=== PATIENT | male | born 1965 | race Caucasian/White ===

== ENCOUNTER 2017-05-28 05:09 | Day surgery (SDC) | payer MEDICAID ==
[2017-05-27 11:13] LABS: HEMATOCRIT 38.9 % (42.0-54.0); HEMOGLOBIN 11.7 g/dL (13.5-17.5); MCH 24.5 pg (26.0-34.0); MCHC 30.1 g/dL (31.0-37.0); MCV 81.4 fL (80.0-100.0); MEAN PLATELET VOLUME 9.6 fL (7.4-10.4); RBC 4.78 10x6/uL (4.20-6.10); WBC 6.8 10x3/uL (4.8-10.8)
[2017-05-27 11:25] LABS: CALC OSMOLALITY 277 mosm/kg (275-300); CARBON DIOXIDE 23.6 mmol/L (21.0-32.0); CHLORIDE - SERUM 106 mmol/L (98-107); CREATININE - SERUM 1.1 mg/dL (0.6-1.3); GLUCOSE 95 mg/dL (74-106); POTASSIUM - SERUM 5.2 mmol/L (3.5-5.1); SODIUM 138 mmol/L (136-145); UREA NITROGEN 18 mg/dL (7-18); eGFR NON AFRICAN AMERICAN 75 mL/min (90-120)
[~2017-05-28] VITALS: Ht 172.7 cm; Wt 71.7 kg
[~2017-05-28 05:09] MED LIST: ACETAMINOPHEN325 MG PO; ADVIL PM CAPLET1 TAB PO; AMBIEN10 MG PO; CARAFATE1 G/10 ML PO; COUMADIN6 MG PO; DEPRESSION PILL; EFFEXOR75 MG PO; ELAVIL25 MG PO; FERROUS SULFAT325 MG PO; HYDROXYZINE PA100 MG PO; MELATONIN 3 MG1 TAB PO; NEURONTIN 300300 MG PO; NEURONTIN600 MG PO; OXYCODONE HCL5 MG PO; PROTONIX20 MG PO; PROTONIX40 MG PO; PROZAC20 MG PO; PROZAC40 MG PO; SEROQUEL50 MG PO; TORADOL10 MG PO; TYLENOL PM1 TAB PO
[2017-05-28] MEDS ORDERED: ASPIRIN325 MG PO (09:24)
[2017-05-28] MEDS ORDERED: ACETAMINOPHEN325 MG PO (09:24)
[2017-05-28] MEDS ORDERED: FERROUS SULFAT325 MG PO (09:26)
[2017-05-28 09:33] VITALS: BP 112/73; Ht 172.7 cm; Wt 71.7 kg
--- NOTE | 2017-05-28 13:32 | NUR ---
SHAVED LOWER ABDOMEN WERE SHAVING WAS N0T DONE, ANJANA.
[2017-05-28] MEDS ORDERED: NORCO 7.5/325 T1 TA1 PO (14:27)
--- NOTE | 2017-05-29 07:11 | OP ---
PATIENT NAME: DORA CENTENO MEDICAL RECORD: [id number] :65 LOCATION:D.[facility] ADMISSION DATE: SURGEON: JACKIE GUDINO MD DATE OF OPERATION: 05/28/2017 SURGEON: Dr. Jackie Gudino. PREOPERATIVE DIAGNOSES: 1. Omental mass. 2. Left lower quadrant pain. 3. History of perforated peptic ulcer with duodenal stenosis. PROCEDURE PERFORMED: 1. Laparoscopic omentectomy. 2. Laparoscopic lysis of adhesions. ANESTHESIA: General. COMPLICATIONS: None. SPECIMENS: Omentum. Case was clean. ESTIMATED BLOOD LOSS: 50 cc. OPERATIVE COURSE: After consent was obtained, the patient was taken to the operating room and placed in the supine position on the operating table. Next, general anesthesia was given via endotracheal intubation after a timeout was taken to confirm the correct patient and procedure. After the abdomen was prepped and draped in typical sterile fashion, a local anesthetic was injected in the right upper quadrant. Using a 5-mm bladeless optical trocar, the abdomen was entered under direct laparoscopic vision. Adequate pneumoperitoneum was achieved. The abdominal cavity was inspected. No evidence of bowel injury. No evidence of bleeding. At this time, 2 additional trocars were placed; one 12-mm trocar in the right lateral quadrant, 5-mm trocar in the left lower quadrant. Both were placed under direct laparoscopic vision after the administration of local anesthetic. A large omental mass was noted, which was densely adherent to the anterior abdominal wall. There were several loops of bowel adherent to the anterior abdominal wall. Meticulous lysis of adhesions was performed using Metzenbaum scissor dissection, as well as Harmonic scalpel dissection. Once all the small bowel loops were dissected off the anterior abdominal wall, the abdominal cavity was washed out. No evidence of bowel injury was identified. At this time, the omentum was dissected off the anterior abdominal wall using the Harmonic scalpel. Once complete, the omentum, it was transected at the base of the transverse colon. A 15 mm trocars placed in the 12-mm trocar site. The omentum was placed into a large EndoCatch bag and the incision was slightly enlarged. The bag was removed and the omentum was sent for permanent pathology. The 12-mm trocar was replaced. The abdominal cavity was reinspected. The entire abdominal cavity was copiously irrigated and suctioned. Careful attention was paid to hemostasis. As the abdominal cavity was inspected, there was no evidence of bowel injury. No evidence of bleeding. The small bowel was meticulously examined along the areas of dissection. There was no bowel injury was noted. No serosal defects noted. At this time, all remaining instruments were removed. The abdomen was desufflated. Trocars were removed. The 15-mm OPERATIVE REPORT [id number] DORA CENTENO trocar incision was closed in 2 layers. The peritoneum was closed with 0 Vicryl suture. The external and internal fascia layers were closed with an 0 Vicryl suture. Skin was closed with 4-0 Monocryl, Mastisol and Steri-Strips. At the end of the case, all needle and instrument counts were correct. No complications occurred. The patient was extubated and transferred to the PACU in stable condition. TRANSINT:[id number] Voice Confirmation ID: [id number] DOCUMENT ID: [id number] JACKIE GUDINO MD at 0711 CC: [id number] DICTATION DATE: 05/28/17 1425 CONSTRUCTION PIT WORKER: 05/28/172056 [facility] 05/28/17 [facility] [address] [place] [address]
== END 2017-05-28 18:00 | disposition home or self-care (01) ==
LOC: D.OPS 05:09 → D.PAN 10:30 → D.OPS 18:00
PROVIDERS: Anesthesiology
DX: R19.09 Other intra-abdominal and pelvic swelling, mass and lump (principal); R10.32 Left lower quadrant pain; K27.9 Peptic ulcer, site unspecified, unspecified as acute or chronic, without hemorrhage or perforation; I81 Portal vein thrombosis; Z01.812 Encounter for preprocedural laboratory examination

== ENCOUNTER → 2018-08-11 14:16 | Outpatient (CLI) | payer MEDICAID ==
[2017-05-28 09:33] VITALS: BMI 24.0
[~2018-08-11 14:16] MED LIST changes: +ASPIRIN325 MG PO; +NORCO 7.5/325 T1 TA1 PO
[2018-08-12 10:20] LABS: HEPATITIS C ANTIBODY <0.1 S/CO RAT (0.0-0.9)
== END | disposition home or self-care (01) ==
LOC: D.LAB 14:16
PROVIDERS: Internal Medicine Gastroenterology
DX: R74.8 Abnormal levels of other serum enzymes (principal); R10.13 Epigastric pain; R11.0 Nausea; D64.9 Anemia, unspecified; R63.4 Abnormal weight loss

== ENCOUNTER → 2018-11-16 09:01 | Outpatient (CLI) | payer MEDICAID ==
[2017-05-28 09:33] VITALS: BMI 24.0
[2018-11-16 09:59] LABS: BASOPHILS 1.3 % (0-2); EOSINOPHILS 7.5 % (0-7); HEMATOCRIT 43.2 % (42.0-54.0); HEMOGLOBIN 14.4 g/dL (13.5-17.5); IMMATURE GRANULOCYTES 0.2 % (0-5); LYMPHOCYTES 24.7 % (15-50); MCH 31.6 pg (26.0-34.0); MCHC 33.3 g/dL (31.0-37.0); MCV 94.9 fL (80.0-100.0); MEAN PLATELET VOLUME 8.9 fL (7.4-10.4); MONOCYTES 6.9 % (2-11); NEUTROPHILS 59.4 % (40-80); RBC 4.55 10x6/uL (4.20-6.10); RDW 15.5 % (11.5-14.5); WBC 5.2 10x3/uL (4.8-10.8)
[2018-11-16 10:07] LABS: PLATELET COUNT 148 10x3/uL (130-400)
== END | disposition home or self-care (01) ==
LOC: D.RAD 09:00
PROVIDERS: Internal Medicine Gastroenterology
DX: R10.9 Unspecified abdominal pain (principal)

== ENCOUNTER 2018-12-14 05:57 | Day surgery (SDC) | payer MEDICAID ==
[~2018-12-14] VITALS: Ht 172.7 cm; Wt 65.9 kg
[2018-12-14 06:25] LABS: ANION GAP 14.3 mmol/L (8-16); CALCIUM 8.4 mg/dL (8.5-10.1); CARBON DIOXIDE 27.1 mmol/L (21.0-32.0); CREATININE - SERUM 1.1 mg/dL (0.6-1.3); POTASSIUM - SERUM 4.4 mmol/L (3.5-5.1)
[2018-12-14 06:35] LABS: HEMATOCRIT 44.4 % (42.0-54.0); HEMOGLOBIN 14.3 g/dL (13.5-17.5); MCH 31.3 pg (26.0-34.0); MCHC 32.2 g/dL (31.0-37.0); MCV 97.2 fL (80.0-100.0); MEAN PLATELET VOLUME 9.6 fL (7.4-10.4); RBC 4.57 10x6/uL (4.20-6.10); RDW 14.1 % (11.5-14.5)
[2018-12-14 06:44] LABS: INR 0.93 (0.85-1.17)
[2018-12-14 07:12] VITALS: BP 113/75; Ht 172.7 cm; Wt 65.9 kg
--- NOTE | 2018-12-14 09:19 | NUR ---
DC INSTRUCTIONS GIVEN TO PT/FAMILY. STATE UNDERSTANDING. DC'D IV CATH FULLY INTACT.
--- NOTE | 2018-12-14 09:45 | NUR ---
PT LEFT UNIT VIA WC AT [id number]
--- NOTE | 2018-12-14 12:46 | OP ---
PATIENT NAME: DORA CENTENO MEDICAL RECORD: [id number] :65 LOCATION:D.[facility] ADMISSION DATE: SURGEON: JACKIE GUDINO MD DATE OF OPERATION: 12/14/2018 SURGEON: Jackie Gudino MD PREOPERATIVE DIAGNOSES: 1. Gastric anastomotic stricture. 2. Gastroparesis. 3. Intractable nausea. POSTOPERATIVE DIAGNOSES: 1. Gastric anastomotic stricture. 2. Gastroparesis. 3. Intractable nausea. PROCEDURE PERFORMED: Esophagogastroduodenoscopy with balloon dilatation of gastrojejunostomy. ANESTHESIA: Total intravenous anesthesia. COMPLICATIONS: None. SPECIMENS: None. Case was contaminated. OPERATIVE COURSE: After consent was obtained, the patient was taken to the endoscopy suite at which time a time-out was taken to confirm the correct patient and procedure. A bite block was placed. Hurricaine Sherrill was administered. Total intravenous anesthesia was given, the gastroscope was passed through the biteblock and into the posterior oropharynx. It was passed posterior to the epiglottis under direct endoscopic vision. It was passed along the esophagus. There was some air-fluid levels in the distal esophagus at the GE junction as well as some grade II linear esophagitis. Upon entering the stomach again, there was a significant amount of retained food. The stomach was copiously irrigated and suctioned. The gastrojejunostomy site was identified. The gastrojejunostomy itself appeared widely patent. The scope was passed through the gastrojejunostomy and into a limb of the small bowel, which was the efferent limb. At this time, the balloon was passed through the working channel of the scope. ____ small bowel lumen, the scope was retracted and the balloon was deployed across the gastrojejunostomy in the efferent limb and inflated to 20 mm, it was held in place for 3 minutes. At this time, the balloon was deflated and removed. The scope was easily traversed across the gastrojejunostomy at this time and into the distal jejunal limb. There was still a significant part of retained gastric debris. The antrectomy site was well healed. At this time, the scope was withdrawn. At the end of the case, all needle and instrument counts were correct. The patient was transferred to the recovery room in satisfactory condition. TRANSINT:[id number] Voice Confirmation ID: [id number] DOCUMENT ID: [id number] OPERATIVE REPORT [id number] DORA CENTENO JACKIE GUDINO MD at 1246 CC: [id number] DICTATION DATE: 12/14/18 1008 PLAY LEADER: 12/14/18 1133 [facility] [place] 12/14/18 [id number] [place] [address]
== END 2018-12-14 09:42 | disposition home or self-care (01) ==
LOC: D.OPS 05:57
PROVIDERS: Anesthesiology; ATTEND Surgery
DX: T85.898A Other specified complication of other internal prosthetic devices, implants and grafts, initial encounter (principal); K56.699 Other intestinal obstruction unspecified as to partial versus complete obstruction; K31.84 Gastroparesis; K20.9 Esophagitis, unspecified; Z01.812 Encounter for preprocedural laboratory examination